=== PATIENT | male | born 1945 | race Caucasian/White ===

== ENCOUNTER 2019-08-18 | Emergency (ER) | payer MEDICARE ==
[~2019-08-18] MED LIST: BUMETANIDE1 MG PO; BUPROPION150 MG PO; CARVEDILOL25 MG PO; CELEBREX200 MG OR; DIOVAN HCT320 MG/25 OR; LOSARTAN POT25 MG PO; LOVASTATIN40 MG PO; MICRO-K10 ME1 PO; MONTELUKAST SOD10 MG PO; NIFEDIPINE90 M1 OR; PLAVIX75 MG PO; SERTRALINE100 MG OR; SPIRONOLACT25 MG PO; SYMBICORT1 AE1 IN
[2019-08-18] MEDS ORDERED: PLAVIX75 MG PO (13:35)
[2019-08-18] MEDS ORDERED: ALDACTONE25 MG PO (13:37)
[2019-08-18] MEDS ORDERED: SOTALOL HCL80 MG PO (13:49)
[2019-08-18] MEDS ORDERED: BUMETANIDE1 MG PO (13:50)
[2019-08-18] MEDS ORDERED: SINGULAIR10 MG PO (13:51)
[2019-08-18] MEDS ORDERED: ZOLOFT50 MG PO (13:51)
[2019-08-18] MEDS ORDERED: ENTRESTO 49-511 TAB PO (13:53)
[2019-08-18 15:23] LABS: IMMATURE GRANULOCYTES 0.5 % (0.0-5.0); MEAN CELL VOLUME 86.6 fL CALC (80.0-100.0); MEAN CORPUSCULAR HGB 27.6 pG CALC (26.0-32.0); MEAN CORPUSCULAR HGB CONC 31.9 g/L CALC (32.0-36.0); NEUT# 7.78 thou/uL (1.82-7.42); RED BLOOD COUNT 3.73 mill/uL (4.70-6.10); RED CELL DISTRI WIDTH 14.6 % (11.5-15.5)
[2019-08-18 15:24] LABS: HEMATOCRIT 32.3 % (39.0-50.0); HEMOGLOBIN 10.3 g/dl (14.0-18.0)
== END 2019-08-18 15:45 | disposition short-term general hospital (02) ==
PROVIDERS: Family Medicine
DX: S06.5X0A Traumatic subdural hemorrhage without loss of consciousness, initial encounter (principal); I10 Essential (primary) hypertension; I25.2 Old myocardial infarction; Z95.810 Presence of automatic (implantable) cardiac defibrillator; W01.0XXA Fall on same level from slipping, tripping and stumbling without subsequent striking against object, initial encounter